=== PATIENT | female | born 1960 | race Asian ===

== ENCOUNTER 2024-02-27 19:45 | Emergency (ER) | payer OTHER ==
[2024-02-27 20:15] VITALS: BP 178/83; PULSE 74; RESP 18; TEMP 98.5; BMI 25.7
[2024-02-27] MEDS ORDERED: LIDOCAINE 5% TOPICAL PATCH ONE (20:48)
[2024-02-27] MEDS: LIDOCAINE 5% TOPICAL PATCH TP ONE (20:52)
[2024-02-27] MEDS ORDERED: METHOCARBAMOL 750 MG TAB PO ONE (21:00)
[2024-02-27] MEDS ORDERED: ACETAMINOPHEN 325 MG TABLET (FP) ONE (21:04)
[2024-02-27] MEDS ORDERED: METHOCARBAMOL 500 MG TABLET ONE (21:05)
[2024-02-27] MEDS: METHOCARBAMOL 750 MG TAB PO ONE (21:07)
[2024-02-27] MEDS: ACETAMINOPHEN 325 MG TABLET (FP) PO ONE (21:07)
[2024-02-27] MEDS: LIDOCAINE PATCH REMOVAL MC SCH (22:01)
[2024-02-27] MEDS ORDERED: IBUPROFEN 400 MG TABLET (FP) PO ONE (23:25)
[2024-02-27] MEDS: IBUPROFEN 400 MG TABLET (FP) PO ONE (23:28)
== END 2024-02-27 23:30 | disposition home or self-care (01) ==
LOC: JER 19:45
DX: S16.1XXA Strain of muscle, fascia and tendon at neck level, initial encounter (principal); S66.316A Strain of extensor muscle, fascia and tendon of right little finger at wrist and hand level, initial encounter; R07.9 Chest pain, unspecified; V43.62XA Car passenger injured in collision with other type car in traffic accident, initial encounter; Y92.410 Unspecified street and highway as the place of occurrence of the external cause
CPT/HCPCS: 70450-TC; 71046-TC-FY; 72125-TC; 73130-TC-RT-FY; 93005; 93010; 99284-25